=== PATIENT | female | born 1995 | race Two or more races ===

== ENCOUNTER → 2017-07-14 | Outpatient (CLI) | payer OTHER ==
[2017-07-14 16:34] LABS: CHLAM PCR NOT DETECTED (NOT DETECT)
== END ==
LOC: OD 14:32
PROVIDERS: ATTEND Nurse Practitioner Acute Care
DX: R10.9 Unspecified abdominal pain (principal)
CPT/HCPCS: 87086; 87088; 87186; 87491; 87591

== ENCOUNTER → 2017-11-05 | Outpatient (CLI) | payer OTHER | LOC: LAB 16:40 | PROVIDERS: ATTEND Nurse Practitioner Acute Care | DX: Z53.9 Procedure and treatment not carried out, unspecified reason (principal) ==

== ENCOUNTER → 2017-11-13 | Outpatient (CLI) | payer OTHER ==
[2017-11-13 16:16] LABS: WBCS (WET MOUNT) 1+ WBCS SEEN
[2017-11-13 17:46] LABS: CHLAM PCR NOT DETECTED (NOT DETECT); GON PCR NOT DETECTED (NOT DETECT)
[2017-11-14 09:28] LABS: EPITHELIALS (WET MOUNT) 3+ EPITHELIALS SEEN
[2017-11-14 14:13] LABS: T.VAGINALIS (WET MOUNT) COULD NOT PERFORM; YEAST (WET MOUNT) NO YEAST SEEN
[2017-11-14 14:14] LABS: BACTERIA (WET MOUNT) 4+ BACTERIA SEEN
== END ==
LOC: LAB 16:05
PROVIDERS: ATTEND Nurse Practitioner Acute Care
DX: N89.8 Other specified noninflammatory disorders of vagina (principal)
CPT/HCPCS: 87086; 87210; 87491; 87591